=== PATIENT | female | born 1965 | race American Indian/Alaskan Native ===

== ENCOUNTER 2016-12-14 11:23 | Emergency (ER) | payer BC ==
[2016-12-14 11:36] VITALS: BP 124/58
[2016-12-14] MEDS ORDERED: DELTASONE PO ONE (11:39)
[2016-12-14] MEDS ORDERED: BENADRYL PO ONE (11:39)
[2016-12-14] MEDS ORDERED: DUONEB 0.5 MG-3 MG/3 ML SOLN IH ONE (11:39)
--- NOTE | 2016-12-14 13:44 | Emergency Department Report ---
ED General Adult HPI - General Chief complaint: Adult Asthma Stated complaint: SOB Time Seen by Provider: 12/14/16 11:39 Source: patient Mode of arrival: Ambulatory Limitations: No Limitations - History of Present Illness Initial comments: PT states she has a hx of asthma, and is having a flare up. PT states she feels sob. pt denies pain. PT states she is visiting from out of town and she was around a dog for an hour. PT states she has hx of allergies to animals. PT states when her allergies flare up, she gets asthma symptoms. MD Complaint: asthma Onset/Timin -: Gradual, hour(s) Location: chest Severity scale (0 -10): 0 Consistency: constant Improves with: none Worsens with: other (after being around dog. ) Associated Symptoms: cough, shortness of breath. denies: chest pain, diaphoresis, fever/chills, nausea/vomiting Treatments Prior to Arrival: none - Related Data Previous Rx's Medication Instructions Recorded Last Taken Type Albuterol Sulfate [Ventolin HFA] 2 puff IH Q4H PRN #1 hfa.aer.ad 12/14/16 Unknown Rx methylPREDNISolone [Medrol] 4 mg PO DAILY #1 tab.ds.pk 12/14/16 Unknown Rx Allergies Allergy/AdvReac Type Severity Reaction Status Date / Time No Known Allergies Allergy Unverified 12/14/16 11:55 ED Review of Systems ROS: Stated complaint: SOB Other details as noted in HPI Comment: All other systems reviewed and negative Constitutional: denies: fever Respiratory: cough, shortness of breath. denies: wheezing (pt states she has not heard herself wheeze ) Cardiovascular: denies: chest pain Musculoskeletal: denies: back pain ED Past Medical Hx - Past Medical History Hx Diabetes: No Hx Asthma: Yes Additional medical history: Excema, pneumonia - Surgical History Additional Surgical History: C section - Social History Smoking Status: Never Smoker Substance Use Type: None - Medications Home Medications: Home Medications Medication Instructions Recorded Confirmed Last Taken Type Albuterol Sulfate [Ventolin HFA] 2 puff IH Q4H PRN #1 hfa.aer.ad 12/14/16 Unknown Rx methylPREDNISolone [Medrol] 4 mg PO DAILY #1 tab.ds.pk 12/14/16 Unknown Rx ED Physical Exam - General Limitations: No Limitations General appearance: alert, in no apparent distress - Head Head exam: Present: atraumatic, normocephalic - Eye Eye exam: Present: normal appearance, EOMI. Absent: conjunctival injection - ENT ENT exam: Present: normal exam, normal external ear exam - Neck Neck exam: Present: normal inspection, full ROM. Absent: tenderness, lymphadenopathy - Respiratory Respiratory exam: Present: accessory muscle use. Absent: normal lung sounds bilaterally (diminished lung sounds salvador. ), rales, rhonchi - Cardiovascular Cardiovascular Exam: Present: regular rate, normal rhythm, normal heart sounds - Extremities Exam Extremities exam: Present: normal inspection, full ROM - Back Exam Back exam: Present: normal inspection, full ROM. Absent: tenderness, CVA tenderness (R), CVA tenderness (L), muscle spasm, paraspinal tenderness, vertebral tenderness - Neurological Exam Neurological exam: Present: alert, oriented X3, normal gait - Psychiatric Psychiatric exam: Present: normal affect, normal mood - Skin Skin exam: Present: warm, dry ED Course Vital Signs 12/14/16 12/14/16 12/14/16 11:29 12:01 12:10 Temperature 97.7 F Pulse Rate 74 Pulse Rate [ 75 78 Bilateral Upper Lobe] Respiratory 26 H Rate Respiratory 18 18 Rate [Bilateral Upper Lobe] Blood Pressure 124/58 O2 Sat by Pulse 100 Oximetry - Reevaluation(s) Reevaluation #1: 12/14/16 13:44 PT states she is feeling much better. PT denies sob. pt's lungs cta at this time. PT aware she will need to follow up with PCP when she returns home. PT has no questions at this time. - Pulse Oximetry Interpretation Digit-Finger Initial Pulse Oximetry Readin Actions Taken: none ED Medical Decision Making - Differential Diagnosis asthma, allergies, Critical Care Time: No Critical care attestation.: If time is entered above; I have spent that time in minutes in the direct care of this critically ill patient, excluding procedure time. ED Disposition Clinical Impression: Asthma attack Disposition: DISCHARGED TO HOME OR SELFCARE Is pt being admited?: No Does the pt Need Aspirin: No Condition: Stable Instructions: Asthma (ED), Allergies (ED) Additional Instructions: Try to avoid your asthma triggers Take an OTC allergy medication as needed Prescriptions: Albuterol Sulfate [Ventolin HFA] 2 puff IH Q4H PRN #1 hfa.aer.ad PRN Reason: Shortness Of Breath methylPREDNISolone [Medrol] 4 mg PO DAILY #1 tab.ds.pk Referrals: PRIMARY CARE, [Primary Care Provider] - 3-5 Days Time of Disposition: 13:46
== END 2016-12-14 14:00 | disposition home or self-care (01) ==
LOC: ED 11:23
DX: J45.909 Unspecified asthma, uncomplicated (principal)
CPT/HCPCS: 94640; 99283; J7512

== ENCOUNTER 2017-11-28 21:33 | Emergency (ER) | payer BC ==
[2017-11-28] MEDS ORDERED: DUONEB *Not for PRN Use IH ONE ×2 (21:46→22:07)
[2017-11-28 22:02] VITALS: BP 131/65
--- NOTE | 2017-11-28 22:57 | Emergency Department Report ---
ED Asthma HPI - General Chief Complaint: Adult Asthma Stated Complaint: ASTHMA Time Seen by Provider: 11/28/17 22:21 Source: patient, family Mode of arrival: Ambulatory Limitations: No Limitations - History of Present Illness Initial Comments: This is a 52 y.o. female that presents with SOB, chest tightness, and wheezing that started today. History of Asthma and asperiollos. Patient ran out of symbicort 3 weeks ago and didn't get refills due to finances. She is taking prednisone 20 mg po daily and itraconazole 200 mg po daily. She is seeing Dr. Dominguez, pulmonalogist for management of asperiollos. States she thought the oral meds could manage disease until she could afford to get refills. This morning symptoms started with a cough. She thought it would get better by staying indoor but progressivly it got worse. She has not taken anything else but prescribed medication. Denies chest pain, fever, nausea/vomiting, dizziness , or syncope. MD Complaint: "asthma attack", shortness of breath, wheezing -: This afternoon Asthma History: adult onset (secondary to asperiollos disease) Severity: moderate Context: ran out of meds (ran out of symbicort) Associated Symptoms: dry cough. denies: productive cough, fever, chest pain, hemoptysis, leg edema, syncope - Related Data Current Asthma Therapy: recent oral steroid Home Medications Medication Instructions Recorded Confirmed Last Taken Itraconazole 200 mg PO DAILY 11/28/17 11/28/17 Unknown Prednisone 10 mg PO DAILY 11/28/17 11/28/17 Unknown Previous Rx's Medication Instructions Recorded Last Taken Type Albuterol Sulfate [Ventolin HFA] 2 puff IH Q4H PRN #1 hfa.aer.ad 12/14/16 Unknown Rx ALBUTEROL Inhaler [ProAir HFA 1 puff IH QID PRN #1 inha 11/28/17 Unknown Rx Inhaler] Allergies Allergy/AdvReac Type Severity Reaction Status Date / Time No Known Allergies Allergy Unverified 12/14/16 11:55 ED Review of Systems ROS: Stated complaint: ASTHMA Other details as noted in HPI Constitutional: denies: chills, fever Respiratory: cough, wheezing. denies: shortness of breath Cardiovascular: chest pain (tightness with cough). denies: palpitations, edema , syncope Gastrointestinal: denies: abdominal pain, nausea, vomiting, diarrhea Neurological: denies: headache, weakness, numbness, paresthesias Psychiatric: denies: anxiety, depression ED Past Medical Hx - Past Medical History Hx Diabetes: No Hx Asthma: Yes Additional medical history: Excema, pneumonia,Asperiollos (fungal lung disease) - Surgical History Additional Surgical History: C section, Right breast biopsy - Social History Smoking Status: Never Smoker Substance Use Type: None - Medications Home Medications: Home Medications Medication Instructions Recorded Confirmed Last Taken Type Albuterol Sulfate [Ventolin HFA] 2 puff IH Q4H PRN #1 hfa.aer.ad 12/14/16 Unknown Rx ALBUTEROL Inhaler [ProAir HFA 1 puff IH QID PRN #1 inha 11/28/17 Unknown Rx Inhaler] Itraconazole 200 mg PO DAILY 11/28/17 11/28/17 Unknown History Prednisone 10 mg PO DAILY 11/28/17 11/28/17 Unknown History ED Physical Exam - General Limitations: No Limitations General appearance: alert, in no apparent distress - ENT ENT exam: Present: mucous membranes moist - Respiratory Respiratory exam: Present: wheezes (throughout with expiratory). Absent: rales , rhonchi, stridor, chest wall tenderness, accessory muscle use - Cardiovascular Cardiovascular Exam: Present: regular rate, normal rhythm, normal heart sounds. Absent: systolic murmur, diastolic murmur, rubs, gallop - GI/Abdominal GI/Abdominal exam: Present: soft, normal bowel sounds. Absent: distended, tenderness, guarding, rebound, rigid, organomegaly, mass - Neurological Exam Neurological exam: Present: alert, oriented X3, normal gait - Psychiatric Psychiatric exam: Present: normal affect, normal mood - Skin Skin exam: Present: warm, dry, intact, normal color. Absent: rash ED Course Vital Signs 11/28/17 21:52 Temperature 97.8 F Pulse Rate 86 Respiratory 26 H Rate Blood Pressure 131/65 O2 Sat by Pulse 98 Oximetry ED Medical Decision Making - Medical Decision Making 52 y.o. female that presents with SOB, chest tightness, and wheezing since this afternoon. History of Asthma and asperiollos. Noncompliant with medication. She ran out of symbicort 3 weeks ago. Patient examined by me and in slight distress. Vitals stable. Given duoneb treatment once and solu-medrol 40 mg IM once in ER. Wheezes resolved and sat 98% on room air. Asthma exacerbation, Start albuterol. Continue prednisone, symbicort, and itraconazole. Discharged home stable. F/U with paleontologist Dr. Dominguez in [place]. Critical care attestation.: If time is entered above; I have spent that time in minutes in the direct care of this critically ill patient, excluding procedure time. ED Disposition Clinical Impression: Asthma attack Qualifiers: Asthma severity: mild Asthma persistence: intermittent Qualified Code(s): J45.21 - Mild intermittent asthma with (acute) exacerbation Disposition: TO HOME OR SELFCARE Is pt being admited?: No Does the pt Need Aspirin: No Condition: Stable Instructions: Asthma (ED) Additional Instructions: It is important to use inhaler or have active albuterol inhaler and avoiding asthma triggers. Take prescribed medication daily as prescribed. Follow up with Primary Care Provider in 24-72 hours. Prescriptions: ALBUTEROL Inhaler [ProAir HFA Inhaler] 1 puff IH QID PRN #1 inha PRN Reason: Shortness Of Breath Referrals: MEL CARLOS MD [Staff Physician] - 3-5 Days ANN DOLL MD [Staff Physician] - 3-5 Days Time of Disposition: 23:05 Print Language: THAI
== END 2017-11-28 23:31 | disposition home or self-care (01) ==
LOC: ED 21:33
DX: J45.21 Mild intermittent asthma with (acute) exacerbation (principal)
CPT/HCPCS: 94640; 96372; 99283; J2920

== ENCOUNTER 2017-12-02 21:59 | Emergency (ER) | payer BC ==
[2017-12-02] MEDS ORDERED: GUAIFENESIN DM SYRUP PO ONE (23:07)
[2017-12-02] MEDS ORDERED: DELTASONE PO ONE (23:07)
[2017-12-02] MEDS ORDERED: DUONEB *Not for PRN Use IH ONE (23:07)
--- NOTE | 2017-12-02 23:08 | XRay Report ---
FINAL REPORT PROCEDURE: Chest. TECHNIQUE: Portable AP view. HISTORY: Chest pain. COMPARISON: No prior studies are available for comparison. FINDINGS: The heart and mediastinum appear normal. The lungs are clear and well expanded. There are no pleural effusions. The soft tissues and regional skeleton are unremarkable. IMPRESSION: Negative portable chest.
--- NOTE | 2017-12-03 02:11 | Emergency Department Report ---
HPI - General Chief Complaint: Dyspnea/Respdistress Time Seen by Provider: 12/02/17 22:28 - HPI HPI: The patient is a 52-year-old female with a history of asthma, presents for evaluation of dyspnea. The patient reports dyspnea and wheezing since 8 PM earlier tonight, constant since onset, severe, exacerbated with coughing or exertion, and associated with a productive cough. She states that her symptoms are consistent with previous asthma exacerbations. The patient denies fever, syncope, hemoptysis, chest pain, unilateral leg swelling. ED Past Medical Hx - Past Medical History Hx Diabetes: No Hx Asthma: Yes Additional medical history: Excema, pneumonia,Asperiollos (fungal lung disease) - Surgical History Additional Surgical History: C section, Right breast biopsy - Social History Smoking Status: Never Smoker Substance Use Type: None - Medications Home Medications: Home Medications Medication Instructions Recorded Confirmed Last Taken Type Albuterol Sulfate [Ventolin HFA] 2 puff IH Q4H PRN #1 hfa.aer.ad 12/14/16 Unknown Rx ALBUTEROL Inhaler [ProAir HFA 1 puff IH QID PRN #1 inha 11/28/17 Unknown Rx Inhaler] Itraconazole 200 mg PO DAILY 11/28/17 11/28/17 Unknown History Prednisone 10 mg PO DAILY 11/28/17 11/28/17 Unknown History ALBUTEROL Inhaler [ProAir HFA 2 puff IH QID PRN #1 inhalation 12/03/17 Unknown Rx Inhaler] Benzonatate [Tessalon Perles] 100 mg PO Q8HR #20 capsule 12/03/17 Unknown Rx predniSONE [Deltasone] 20 mg PO QDAY #5 tab 12/03/17 Unknown Rx ED Review of Systems ROS: Stated complaint: SOB,CP Other details as noted in HPI Constitutional: denies: fever ENT: denies: throat or neck pain Respiratory: reports: cough, shortness of breath Cardiovascular: denies: chest pain Endocrine: denies unexplained weight loss or gain Gastrointestinal: denies: abdominal pain, nausea Genitourinary: denies: dysuria Musculoskeletal: denies: leg swelling Skin: denies: rash Neurological: denies: headache Hematological/Lymphatic: denies: easy bleeding or easy bruising Psych: denies sadness or hopelessness Physical Exam - Physical Exam Vital Signs: Vital Signs 12/02/17 12/02/17 12/02/17 22:30 23:00 23:57 Temperature 97.9 F Pulse Rate 82 82 Pulse Rate [ 75 Bilateral Bases ] Respiratory 17 17 Rate Respiratory 12 Rate [Bilateral Bases] Blood Pressure 125/61 Blood Pressure 125/61 [Left] O2 Sat by Pulse 100 100 Oximetry 12/03/17 00:06 Temperature Pulse Rate Pulse Rate [ 79 Bilateral Bases ] Respiratory Rate Respiratory 12 Rate [Bilateral Bases] Blood Pressure Blood Pressure [Left] O2 Sat by Pulse Oximetry Physical Exam: General: well-nourished, well-developed, no acute distress Head: Normocephalic, atraumatic Eyes: normal sclera ENT: Mucous membranes are pink and moist Neck: trachea midline, neck supple, No neck stiffness, no cervical adenopathy Respiratory: Diminished breath sounds and wheezing present throughout lung is bilaterally, no costal retractions, no respiratory distress Cardio: S1 and S2 present, no murmurs, rubs, gallops, capillary refill is brisk Abdomen: Normoactive bowel sounds, soft abdomen, no rigidity, no guarding or rebound tenderness Chest WALL/Back: No tenderness to palpation of the chest wall, no CVA tenderness with percussion Musc: No pitting edema Skin: No rash Neuro: no facial drooping, normal speech Psych: Normal affect ED Course Vital Signs 12/02/17 12/02/17 12/02/17 22:30 23:00 23:57 Temperature 97.9 F Pulse Rate 82 82 Pulse Rate [ 75 Bilateral Bases ] Respiratory 17 17 Rate Respiratory 12 Rate [Bilateral Bases] Blood Pressure 125/61 Blood Pressure 125/61 [Left] O2 Sat by Pulse 100 100 Oximetry 12/03/17 00:06 Temperature Pulse Rate Pulse Rate [ 79 Bilateral Bases ] Respiratory Rate Respiratory 12 Rate [Bilateral Bases] Blood Pressure Blood Pressure [Left] O2 Sat by Pulse Oximetry ED Medical Decision Making - Medical Decision Making The patient was seen and examined by myself. The patient is placed on a campus monitor and continuous pulse ox. On initial evaluation, the patient was found to be in no distress. Evaluation orders were placed. The patient is given a breathing treatment and steroids for txt of COPD. Chest x-ray negative for focal consolidation, pleural effusions, pulmonary congestion, pneumothorax, or other acute cardio pulmonary disease process. The patient was reevaluated and reported that their symptoms were markedly improved. On reexamination the patient is found to have normal respiratory rate and O2 sat on pulse oximetry, with no costal retractions or diminishment of breath sounds on auscultation. The patient is stable for discharge with outpatient follow-up. The patient is given follow-up and return instructions. The patient expressed understanding and agreed with the plan. The patient is discharged in stable condition. Critical care attestation.: If time is entered above; I have spent that time in minutes in the direct care of this critically ill patient, excluding procedure time. ED Disposition Clinical Impression: Acute asthma exacerbation Qualifiers: Asthma severity: moderate Asthma persistence: unspecified Qualified Code(s): J45.901 - Unspecified asthma with (acute) exacerbation Disposition: DC-01 TO HOME OR SELFCARE Is pt being admited?: No Does the pt Need Aspirin: No Condition: Stable Instructions: Asthma (ED) Referrals: JOSIANE GODFREY MD [Primary Care Provider] - 3-5 Days Time of Disposition: 02:06
[2017-12-03 02:16] VITALS: BP 126/74
== END 2017-12-03 02:14 | disposition home or self-care (01) ==
LOC: ED 21:59
DX: J45.901 Unspecified asthma with (acute) exacerbation (principal)
CPT/HCPCS: 71045; 93005; 93010; 94640; 99284; J7512

== ENCOUNTER 2018-11-11 03:44 | Emergency (ER) | payer BC ==
[2018-11-11 04:46] LABS: Basophils # (Auto) 0.1 K/mm3 (0.0-0.1); Basophils % (Auto) 0.6 % (0.0-1.8); Eosinophils # (Auto) 0.3 K/mm3 (0.0-0.4); Eosinophils % (Auto) 2.7 % (0.0-4.3); Hemoglobin 13.3 gm/dl (10.1-14.3); Lymphocytes # (Auto) 1.3 K/mm3 (1.2-5.4); Lymphocytes % (Auto) 10.5 % (13.4-35.0); Mean Corpuscular HGB Conc 32 % (30-34); Mean Corpuscular Volume 74 fl (79-97); Monocytes # (Auto) 0.5 K/mm3 (0.0-0.8); Monocytes % (Auto) 4.6 % (0.0-7.3); Platelet Count 291 K/mm3 (140-440); Red Blood Count 5.54 M/mm3 (3.65-5.03); Red Cell Distribution Width 15.3 % (13.2-15.2)
[2018-11-11 04:56] LABS: INR 0.95 (0.87-1.13)
[2018-11-11 04:57] LABS: Partial Thromboplastin Time 25.9 Sec. (24.2-36.6)
[2018-11-11 05:07] LABS: BUN/Creatinine Ratio 26; Blood Urea Nitrogen 18 mg/dL (7-17); Hemolysis Index 3
--- NOTE | 2018-11-11 07:04 | Ultrasound Report ---
PROCEDURE: US PELVIC COMPLETE TECHNIQUE: Real-time transvaginal sonography in multiple planes of the pelvis was performed with scottie ge documentation. Grayscale, color flow Doppler imaging and velocity spectral waveform analysis of th e ovaries was employed (duplex imaging). HISTORY: post menopoausal vaginal bleeding COMPARISONS: None . FINDINGS: UTERUS Size: 13 x 6.8 x 9.8 cm. Endometrial thickness: 18.7 mm. Orientation: anteverted. Cervix: Normal. Fibroids/masses: There are multiple uterine fibroids.. RIGHT Ovary: 4.1 x 3.3 x 3.9 cm. Appearance: There is a cyst measuring 3.5 cm.. Doppler images: Normal spectral waveforms and color flow images of the arterial inflow and venous out flow.. LEFT Ovary: Not identified. Pelvic fluid: None. IMPRESSION: There are multiple uterine fibroids. There is no endometrial fluid. There is endometrial hyperplasia. There is a cyst in the right ovary measuring 3.5 cm. There is no evidence of torsion. The left ovary is not seen. This document is electronically signed by Maury Hernandez MD., November 11 2018 07:01:15 AM ET
--- NOTE | 2018-11-11 07:04 | Ultrasound Report ---
PROCEDURE: US transabdominal TECHNIQUE: Real-time transabdominal sonography in multiple planes of the pelvis was performed with i mage documentation. Grayscale, color flow Doppler imaging and velocity spectral waveform analysis of the ovaries was employed (duplex imaging). HISTORY: post menopoausal vaginal bleeding COMPARISONS: None . FINDINGS: UTERUS Size: 13 x 6.8 x 9.8 cm. Endometrial thickness: 18.7 mm. Orientation: anteverted. Cervix: Normal. Fibroids/masses: There are multiple uterine fibroids.. RIGHT Ovary: 4.1 x 3.3 x 3.9 cm. Appearance: There is a cyst measuring 3.5 cm.. Doppler images: Normal spectral waveforms and color flow images of the arterial inflow and venous out flow.. LEFT Ovary: Not identified. Pelvic fluid: None. IMPRESSION: There are multiple uterine fibroids. There is no endometrial fluid. There is endometrial hyperplasia. There is a cyst in the right ovary measuring 3.5 cm. There is no evidence of torsion. The left ovary is not seen. This document is electronically signed by Maury Hernandez MD., November 11 2018 07:02:17 AM ET
--- NOTE | 2018-11-11 07:29 | Emergency Department Report ---
ED Female HPI - General Chief complaint: Vaginal Bleeding Stated complaint: VAGINAL BLEEDING Time Seen by Provider: 11/11/18 06:11 Source: patient Mode of arrival: Ambulatory Limitations: No Limitations - History of Present Illness Initial comments: Mrs. Greer is a 53 yo female with hx of uterine fibroids, prediabetes and lung disease who presents with painless vaginal spotting this evening. Denies pain or lightheadedness. Last summer, underwent tests including endometrial biopsy by OBGYN for postmenopausal bleeding. Menopause began 2016. The bleeding has stopped after treatment this past summer. No other symptoms. MD Complaint: vaginal bleeding -: Gradual, This evening Severity: mild Consistency: constant Improves with: none Worsens with: none Are you Now?: No Associated Symptoms: denies other symptoms - Related Data Home Medications Medication Instructions Recorded Confirmed Last Taken Itraconazole 200 mg PO DAILY 11/28/17 11/28/17 Unknown Prednisone 10 mg PO DAILY 11/28/17 11/28/17 Unknown Previous Rx's Medication Instructions Recorded Last Taken Type Albuterol Sulfate [Ventolin HFA] 2 puff IH Q4H PRN #1 hfa.aer.ad 12/14/16 Unknown Rx ALBUTEROL Inhaler (OR & NICU) 1 puff IH QID PRN #1 inha 11/28/17 Unknown Rx [ProAir HFA Inhaler] ALBUTEROL Inhaler (OR & NICU) 2 puff IH QID PRN #1 inhalation 12/03/17 Unknown Rx [ProAir HFA Inhaler] Benzonatate [Tessalon Perles] 100 mg PO Q8HR #20 capsule 12/03/17 Unknown Rx predniSONE [Deltasone] 20 mg PO QDAY #5 tab 12/03/17 Unknown Rx Allergies Allergy/AdvReac Type Severity Reaction Status Date / Time No Known Allergies Allergy Unverified 12/14/16 11:55 ED Review of Systems ROS: Stated complaint: VAGINAL BLEEDING Other details as noted in HPI Comment: All other systems reviewed and negative Constitutional: denies: fever, malaise Respiratory: denies: cough Cardiovascular: denies: chest pain ED Past Medical Hx - Past Medical History Previous Medical History?: Yes Hx Diabetes: No Hx Asthma: Yes Additional medical history: Eczema, pneumonia,Asperiollos (fungal lung disease) - Surgical History Past Surgical History?: Yes Additional Surgical History: C section, Right breast biopsy - Social History Smoking Status: Never Smoker Substance Use Type: None - Medications Home Medications: Home Medications Medication Instructions Recorded Confirmed Last Taken Type Albuterol Sulfate [Ventolin HFA] 2 puff IH Q4H PRN #1 hfa.aer.ad 12/14/16 11/28/17 Unknown Rx ALBUTEROL Inhaler (OR & NICU) 1 puff IH QID PRN #1 inha 11/28/17 Unknown Rx [ProAir HFA Inhaler] Itraconazole 200 mg PO DAILY 11/28/17 11/28/17 Unknown History Prednisone 10 mg PO DAILY 11/28/17 11/28/17 Unknown History ALBUTEROL Inhaler (OR & NICU) 2 puff IH QID PRN #1 inhalation 12/03/17 Unknown Rx [ProAir HFA Inhaler] Benzonatate [Tessalon Perles] 100 mg PO Q8HR #20 capsule 12/03/17 Unknown Rx predniSONE [Deltasone] 20 mg PO QDAY #5 tab 12/03/17 Unknown Rx ED Physical Exam - General Limitations: No Limitations General appearance: alert, in no apparent distress - Head Head exam: Present: atraumatic, normocephalic - Eye Eye exam: Present: normal appearance - ENT ENT exam: Present: mucous membranes moist - Neck Neck exam: Present: normal inspection, full ROM - Respiratory Respiratory exam: Present: normal lung sounds bilaterally. Absent: respiratory distress, wheezes, rales, rhonchi - Cardiovascular Cardiovascular Exam: Present: regular rate, normal rhythm, normal heart sounds. Absent: systolic murmur, diastolic murmur, rubs, gallop - GI/Abdominal GI/Abdominal exam: Present: soft, normal bowel sounds. Absent: distended, tenderness, guarding - Extremities Exam Extremities exam: Present: normal inspection - Back Exam Back exam: Present: normal inspection - Neurological Exam Neurological exam: Present: alert, oriented X3 - Psychiatric Psychiatric exam: Present: normal affect, normal mood - Skin Skin exam: Present: warm, dry, intact, normal color. Absent: rash ED Course Vital Signs 11/11/18 11/11/18 03:55 05:46 Temperature 97.6 F 98.0 F Pulse Rate 82 80 Respiratory 18 16 Rate Blood Pressure 139/67 Blood Pressure 119/69 [Left] O2 Sat by Pulse 96 98 Oximetry ED Medical Decision Making - Lab Data Result diagrams: 11/11/18 04:31 11/11/18 04:31 Laboratory Results - last 24 hr 11/11/18 11/11/18 11/11/18 04:31 04:31 04:31 WBC 11.9 H RBC 5.54 H Hgb 13.3 Hct 41.0 MCV 74 L MCH 24 L MCHC 32 RDW 15.3 H Plt Count 291 Lymph % (Auto) 10.5 L [place] % (Auto) 4.6 Eos % (Auto) 2.7 Baso % (Auto) 0.6 Lymph # 1.3 [place] # 0.5 Eos # 0.3 Baso # 0.1 Seg Neutrophils % 81.6 H Seg Neutrophils # 9.7 H PT 13.3 INR 0.95 APTT 25.9 Sodium 139 Potassium 4.2 Chloride 102.2 Carbon Dioxide 23 Anion Gap 18 BUN 18 H Creatinine 0.7 Estimated GFR > 60 BUN/Creatinine Ratio 26 Glucose 103 H Calcium 9.0 - Radiology Data Radiology results: report reviewed Numerous uterine fibroids with 3.5 cm ovarian cyst - Medical Decision Making Mrs. Greer is a very pleasant 53-year-old healthy female who presents with painless vaginal spotting. Abnormal vaginal bleeding. She's had previous evaluation including malignancy workup recently this past summer. I have asked her to contact her [employer]. She understands that the risk of DVT/VTE with hormonal therapy is increased at her age. Consequently I did not provide prescription for hormone therapy to halt the vaginal bleeding. Additionally I did give her a copy of the ultrasound report revealing the 3.5 ovarian cyst which will need to be evaluated by her [employer]. She understands the risk of [employer] malignancy. Critical care attestation.: If time is entered above; I have spent that time in minutes in the direct care of this critically ill patient, excluding procedure time. ED Disposition Clinical Impression: Postmenopausal bleeding, Uterine fibroid, Ovarian cyst Disposition: [id number] TO HOME OR SELFCARE Is pt being admited?: No Does the pt Need Aspirin: No Condition: Stable Additional Instructions: Please call your OBGYN today to inform her the ovarian cyst and vaginal bleeding. Forms: Work/School Release Form(ED)
[2018-11-11 07:31] VITALS: BP 109/66
[2018-11-11 07:53] LABS: Bilirubin,Urine NEG (Negative); Blood,Urine MOD (Negative); Color,Urine Yellow (Yellow); Protein,Urine <15 mg/dL mg/dL (Negative); Urobilinogen,Urine < 2.0 mg/dL (<2.0); WBC,Urine < 1.0 /HPF (0.0-6.0)
== END 2018-11-11 07:35 | disposition home or self-care (01) ==
LOC: ED 03:44
DX: N95.8 Other specified menopausal and perimenopausal disorders (principal); N93.9 Abnormal uterine and vaginal bleeding, unspecified; D25.9 Leiomyoma of uterus, unspecified; N83.209 Unspecified ovarian cyst, unspecified side; J45.909 Unspecified asthma, uncomplicated
CPT/HCPCS: 36415; 76830; 76856; 80048; 81001; 85025; 85610; 85730; 86850; 86900; 86901